=== PATIENT | female | born 1980 | race Caucasian/White ===

== ENCOUNTER → 2023-03-09 | Outpatient (CLI) | payer BC, SELFPAY ==
--- NOTE | 2023-03-09 07:50 | US_ITS ---
STUDY: THYROID ULTRASOUND REASON FOR EXAM: Female, 42 years old. AUTOIMMUNE THYROID TECHNIQUE: Ultrasound evaluation of the thyroid was performed with real-time and static louis-scale imaging. COMPARISON: None. FINDINGS: RIGHT LOBE: The right lobe of the thyroid gland measures 4.7 x 1.8 x 2.2 cm. There is a heterogeneous echotexture. Multiple small (less than 5 mm) solid and cystic nodules consistent with adenomas or colloid cyst. LEFT LOBE: The left lobe of the thyroid gland measures 5.0 x 2.0 x 2.3 cm. There is a heterogeneous echotexture. Multiple small (less than 5 mm) solid and cystic nodules consistent with adenomas or colloid cyst. Nodule 1:13 x 3 x 12 mm solid hypoechoic wider than tall smoothly marginated nodule with no echogenic foci (TR 4) in the anterior left lobe and follow-up ultrasound is recommended in one year. Nodule 2:8 x 5 x 9 mm solid hypoechoic wider than tall smoothly marginated nodule with no echogenic foci (TR 4) in the anterior left lobe and follow-up ultrasound is recommended in one year. ISTHMUS: The isthmus measures 1 mm thick. . The regional lymph nodes are normal. US/Thyroid IMPRESSION: Multinodular thyroid gland and follow-up ultrasound is recommended in one year. Electronically Signed: Evan Mcgarry MD at 22:51 EDT ,
== END | disposition home or self-care (01) ==
DX: E06.3 Autoimmune thyroiditis (principal); R13.10 Dysphagia, unspecified
CPT/HCPCS: 76536

== ENCOUNTER → 2024-03-10 | Outpatient (CLI) | payer BC, SELFPAY ==
--- NOTE | 2024-03-10 15:23 | US_ITS ---
STUDY: THYROID ULTRASOUND REASON FOR EXAM: Female, 43 years old. HYPOTHYROIDISM TECHNIQUE: Ultrasound evaluation of the thyroid was performed with real-time and static louis-scale imaging. COMPARISON: Comparison is made with prior study dated March 09, 2023. FINDINGS: RIGHT LOBE: The right lobe of the thyroid gland measures 4.7 cm x 1.7 cm x 1.8 cm. There is a heterogeneous echotexture. Stable 5 mm x 7 mm x 2 mm hypoechoic well-defined solid/cystic nodule in the midpole. LEFT LOBE: The left lobe of the thyroid gland measures 4.3 cm x 2 cm x 1.8 cm. There is a heterogeneous echotexture. There is a 1.2 cm x 0.6 cm x 0.4 cm hypoechoic solid nodule in the anterior left upper pole. A similar appearing nodule measuring 1.1 cm x 0.8 cm x 0.3 cm solid/cystic nodule is seen in the lower pole. ISTHMUS: The isthmus measures 1 mm. The regional lymph nodes are normal. US/Thyroid IMPRESSION: Essentially stable examination with multinodular goiter. Electronically Signed: Pedro Sellers MD at 13:30 EDT ,
== END | disposition home or self-care (01) ==
DX: E03.9 Hypothyroidism, unspecified (principal)
CPT/HCPCS: 76536

== ENCOUNTER → 2025-05-14 | Outpatient (CLI) | payer BC, SELFPAY ==
--- NOTE | 2025-05-14 12:13 | US_ITS ---
PROCEDURE: THYROID 05/14/2025 REASON FOR EXAM: AUTOIMMUNE THYROIDITIS TECHNIQUE: Procedure Code: USTHY Modality: US Procedure: THYROID COMPARISON: March 10, 2024 FINDINGS: The right thyroid lobe measures 4.7 cm x 1.9 cm x 1.6 cm. There is a 0.6 cm x 0.6 cm x 0.3 cm hypoechoic nodule with central increased echogenicity. It is smooth and wider than tall without echogenic foci. This previously measured 0.5 cm x 0.2 cm x 0.7 cm. TR 4. Multiple additional tiny TR 1 nodules are noted. The left thyroid lobe measures 4.4 cm x 2.1 cm x 1.3 cm. There is a 1.2 cm x 0.8 cm x 0.4 cm TR 4 nodule present. This previously measured 1.2 cm x 0.4 cm x 0.6 cm. There is also a 1.1 cm x 0.5 cm x 0.3 cm TR 4 nodule which previously measured 1.1 cm x 0.3 cm x 0.8 cm. US/Thyroid IMPRESSION: Bilateral nodules. These are very similar to the previous study. As per ACR g uidelines, 1 year ultrasound follow-up is recommended. RECOMMENDATION: Based on most suspicious nodule. Nodule size = largest diameter Only evaluate nodule if =>5 mm. Growth > 20% in 2 dimensions = worsening. Follow up to 4 nodules. Recommend biopsy for no more than 2 nodules. Reading [facility]
--- NOTE | 2025-05-14 12:13 | US_ITS ---
PROCEDURE: THYROID 05/14/2025 REASON FOR EXAM: AUTOIMMUNE THYROIDITIS TECHNIQUE: Procedure Code: USTHY Modality: US Procedure: THYROID COMPARISON: March 10, 2024 FINDINGS: The right thyroid lobe measures 4.7 cm x 1.9 cm x 1.6 cm. There is a 0.6 cm x 0.6 cm x 0.3 cm hypoechoic nodule with central increased echogenicity. It is smooth and wider than tall without echogenic foci. This previously measured 0.5 cm x 0.2 cm x 0.7 cm. TR 4. Multiple additional tiny TR 1 nodules are noted. The left thyroid lobe measures 4.4 cm x 2.1 cm x 1.3 cm. There is a 1.2 cm x 0.8 cm x 0.4 cm TR 4 nodule present. This previously measured 1.2 cm x 0.4 cm x 0.6 cm. There is also a 1.1 cm x 0.5 cm x 0.3 cm TR 4 nodule which previously measured 1.1 cm x 0.3 cm x 0.8 cm. US/Thyroid IMPRESSION: Bilateral nodules. These are very similar to the previous study. As per ACR g uidelines, 1 year ultrasound follow-up is recommended. RECOMMENDATION: Based on most suspicious nodule. Nodule size = largest diameter Only evaluate nodule if =>5 mm. Growth > 20% in 2 dimensions = worsening. Follow up to 4 nodules. Recommend biopsy for no more than 2 nodules. Reading Location[facility]
== END | disposition home or self-care (01) ==
LOC: OPUS 12:11
PROVIDERS: PCP Physician Assistant Medical; Referring Provider Physician Assistant Medical; Visit Provider Physician Assistant Medical
DX: E06.3 Autoimmune thyroiditis (principal)
CPT/HCPCS: 76536